=== PATIENT | male | born 1960 | race African-American/Black ===

== ENCOUNTER 2020-01-21 10:05 | Day surgery (SDC) | payer OTHER ==
[~2020-01-21] VITALS: Ht 172.7 cm; Wt 94.8 kg
[~2020-01-21 10:05] MED LIST: AMLO5TAB88 PO; ASPI-986 PO; ATEN-42 PO; NIAC500T2 PO; NITR0.4T49 SL; OMEG1CAP50 PO; PRAS10TA6 PO; ROSU20TA2 PO; UBID100C PO; VARD20TA31 PO
[2020-01-21 11:11] LABS: BASOPHILS % 0.7 % (0.0-2.0); EOSINOPHILS % 1.2 % (0.0-5.0); HEMATOCRIT. 47.3 % (42.0-52.0); HEMOGLOBIN. 16.2 g/dL (14.0-18.0); LYMPHOCYTES % 33.5 % (20.0-50.0); MEAN CORPUSCULAR HEMOGLOBIN 34.3 pg (28.0-32.0); MEAN CORPUSCULAR VOLUME 100.1 fL (80.0-94.0); MEAN PLATELET VOLUME 8.4 fl (7.4-10.4); MONOCYTES % 12.7 % (2.0-8.0); NEUTROPHILS % 51.9 % (40.0-76.0); PLATELET 196 x1000/uL (130-400); RED BLOOD CELL COUNT 4.72 mill/uL (4.7-6.1); RED CELL DISTRIBUTION WIDTH 13.9 % (11.6-14.6)
[2020-01-21 11:21] LABS: CHLORIDE 107 mEq/L (98-107)
[2020-01-21] MEDS ORDERED: AMLO10TA80 PO (11:33)
[2020-01-21] MEDS ORDERED: ASPI-1497 PO (11:33)
[2020-01-21] MEDS ORDERED: TRAZ-251 PO (12:18)
[2020-01-21] MEDS ORDERED: LOVAZA PO (12:18)
[2020-01-21] MEDS ORDERED: CHOL200077 PO (12:18)
[2020-01-21] MEDS ORDERED: GINK120T4 PO (12:18)
[2020-01-21] MEDS ORDERED: ROSU40TA PO (12:18)
[2020-01-21] MEDS ORDERED: HEPARIN SODIUM 1,000 UNIT/1ML VIAL IV ONE (13:13)
[2020-01-21] MEDS ORDERED: IODIXANOL 320MG/ML 100 ML BOTTLE IV ONE (14:14)
[2020-01-21] MEDS ORDERED: ASPIRIN/SOD BICARB/CITRIC ACID 324MG TAB EFF ONE (14:21)
[2020-01-21] MEDS ORDERED: LIDOCAINE HCL 1% 20ML VIAL (Pyxis) INJ ONE ×2 (14:38→15:31)
[2020-01-21] MEDS ORDERED: MIDAZOLAM HCL 2 MG/2 ML VIAL ONE ×2 (15:11→15:38)
[2020-01-21] MEDS ORDERED: FENTANYL CITRATE/PF 50MCG/ML 2ML VIAL ONE (15:12)
[2020-01-21] MEDS ORDERED: ACETAMINOPHEN 325MG TABLET PO PRN (16:00)
[2020-01-21] MEDS ORDERED: MORPHINE SULFATE 2 MG/ML CPJ (NOT FOR IM USE) IV PRN ×2 (16:00)
[2020-01-21] MEDS ORDERED: ONDANSETRON HCL 4MG/2ML INJ IV PRN (16:00)
== END 2020-01-21 20:30 | disposition home or self-care (01) ==
LOC: CCL 10:05
PROVIDERS: ATTEND Specialist
DX: R07.9 Chest pain, unspecified (principal); I25.10 Atherosclerotic heart disease of native coronary artery without angina pectoris; I10 Essential (primary) hypertension; E78.5 Hyperlipidemia, unspecified; Z95.5 Presence of coronary angioplasty implant and graft; Z95.1 Presence of aortocoronary bypass graft; Z79.82 Long term (current) use of aspirin; Z79.899 Other long term (current) drug therapy; Z88.2 Allergy status to sulfonamides; Z88.8 Allergy status to other drugs, medicaments and biological substances
CPT/HCPCS: 36415; 80048; 85025; 93005; 93459; C1760; C1769; C1887; C1893; J1644; J2250; J3010; J3490; Q9967; 99152; 99153; G0500